=== PATIENT | female | born 1945 | race Caucasian/White ===

== ENCOUNTER 2016-05-25 08:23 | Outpatient (CLI) | payer MEDICARE ==
[2016-05-25 09:08] LABS: Hemoglobin A1c 5.6 % (4.0-6.0)
[2016-05-25 09:28] LABS: Cardiac Risk 4.4 (Less than 4.5)
== END 2016-05-25 08:24 | disposition home or self-care (01) ==
LOC: BURLAB 08:23
PROVIDERS: ATTEND Internal Medicine Cardiovascular Disease
DX: E78.5 Hyperlipidemia, unspecified (principal); E11.9 Type 2 diabetes mellitus without complications
CPT/HCPCS: 36415; 80061; 83036